=== PATIENT | female | born 1975 | race Caucasian/White ===

== ENCOUNTER 2016-06-17 10:17 | Emergency (ER) | payer OTHER ==
[~2016-06-17] VITALS: Ht 160 cm; Wt 70.4 kg
[~2016-06-17 10:17] MED LIST: ALPRAZOLAM0.25 M2 PO; BACTRIM,SEPT1 TABLET PO; CARBAMAZEPINE100 MG PO; ESCITALOPRAM OX20 MG PO; KEFLEX500 MG PO; LEVETIRACETAM750 MG PO; LEXAPRO20 MG PO; MYCOSTATIN 100,60 ML PO; Sodium Bicarbonate PO; VIMPAT50 MG PO; XANAX0.25 MG PO
[2016-06-17 11:08] LABS: EOSINOPHIL (%) 6.9 % (0-5); EOSINOPHIL COUNT 0.2 K/uL (0-0.3); HEMATOCRIT 42.1 % (36.0-46.0); INSTRUMENT ABS NEUTROPHIL CT 2.2 K/uL; LYMPHOCYTE COUNT 0.7 K/uL (1.0-2.8); MCH 30.2 PG (29.0-34.0); MCHC 34.4 G/DL (30.0-36.0); MCV 87.7 FL (83-99); MEAN PLAT.VOLUME 9.7 uM^3 (9.5-12.4); MONOCYTE (%) 9.4 % (3-12); MONOCYTE COUNT 0.3 K/uL (0-0.8); NEUTROPHIL (%) 63.1 % (45-76); NEUTROPHIL COUNT 2.2 K/uL (1.8-6.4); PLATELET COUNT 433 K/uL (156-360); RBC DIS.WIDTH-CV 11.3 % (11.8-14.6); RBC DIS.WIDTH-SD 36.5 % (39-53)
[2016-06-17 11:09] LABS: WHITE BLOOD COUNT 3.5 K/uL (4.1-10.2)
[2016-06-17 11:16] LABS: CHLORIDE 96 mEq/L (99-109); POTASSIUM 4.1 mEq/L (3.7-5.4); SODIUM 131 mEq/L (136-147)
[2016-06-17 11:18] LABS: GLUCOSE 84 mg/dL (70-99)
[2016-06-17 11:19] LABS: ANION GAP 8 MEQ/L (2-14)
[2016-06-17 11:20] LABS: TOTAL BILIRUBIN 0.3 mg/dL (0.0-1.0)
[2016-06-17 11:21] LABS: ALKALINE PHOSPHATASE 89 IU/L (3-129)
[2016-06-17 11:22] LABS: GFR ESTIMATE (CALCULATED) > 59 mL/min/
[2016-06-17 11:23] LABS: UREA NITROGEN (BUN) 6 mg/dL (9-23)
[2016-06-17 11:41] LABS: ADD MIUA? YES; BILIRUBIN NEGATIVE; BLOOD SMALL; COLOR YELLOW ((YELLOW)); GLUCOSE (STRIP) NEGATIVE; KETONES NEGATIVE; LEUKOCYTES NEGATIVE; NITRITE NEGATIVE; PROTEIN (STRIP) NEGATIVE; SPECIFIC GRAVITY 1.012 (1.000-1.030); UROBILINOGEN 0.2 MG/DL (0.2-1.0)
[2016-06-17 11:47] LABS: BACTERIA RARE /HPF; EPITHELIAL CELLS RARE /HPF; MUCUS TRACE /LPF; RED BLOOD CELLS 0-5 /HPF (0-5); UCUL ADDED? NO; WHITE BLOOD CELLS 0-5 /HPF (0-5)
[2016-06-17 15:18] VITALS: BP 117/71
== END 2016-06-17 15:18 | disposition home or self-care (01) ==
LOC: EME 10:17
PROVIDERS: Emergency Medicine
DX: G40.909 Epilepsy, unspecified, not intractable, without status epilepticus (principal); K21.9 Gastro-esophageal reflux disease without esophagitis; F79 Unspecified intellectual disabilities
CPT/HCPCS: 80053; 80156; 81003; 85025; 99281; 99285; J7030

== ENCOUNTER 2016-07-03 05:00 | Emergency (ER) | payer OTHER ==
[~2016-07-03] VITALS: Ht 160 cm; Wt 69.3 kg
[2016-07-03 06:07] LABS: CHLORIDE 97 mEq/L (99-109); POTASSIUM 3.8 mEq/L (3.7-5.4); SODIUM 132 mEq/L (136-147)
[2016-07-03 06:09] LABS: GLUCOSE 95 mg/dL (70-99)
[2016-07-03 06:10] LABS: ANION GAP 7 MEQ/L (2-14)
[2016-07-03 06:11] LABS: TOTAL BILIRUBIN 0.3 mg/dL (0.0-1.0)
[2016-07-03 06:13] LABS: ALKALINE PHOSPHATASE 67 IU/L (3-129); GFR ESTIMATE (CALCULATED) > 59 mL/min/
[2016-07-03 06:14] LABS: UREA NITROGEN (BUN) 6 mg/dL (9-23)
[2016-07-03 06:16] LABS: HEMATOCRIT 40.6 % (36.0-46.0); LIPASE 21 U/L (1.0-51.0); MCH 29.9 PG (29.0-34.0); MCHC 33.3 G/DL (30.0-36.0); MEAN PLAT.VOLUME 9.7 uM^3 (9.5-12.4); PLATELET COUNT 324 K/uL (156-360); RBC DIS.WIDTH-CV 11.6 % (11.8-14.6); RBC DIS.WIDTH-SD 38.2 % (39-53); RED BLOOD COUNT 4.51 M/uL (3.80-5.20); WHITE BLOOD COUNT 5.1 K/uL (4.1-10.2)
[2016-07-03 06:43] LABS: ADD MIUA? YES; BILIRUBIN NEGATIVE; BLOOD NEGATIVE; COLOR YELLOW ((YELLOW)); GLUCOSE (STRIP) NEGATIVE; KETONES NEGATIVE; LEUKOCYTES NEGATIVE; NITRITE NEGATIVE; PROTEIN (STRIP) NEGATIVE; UROBILINOGEN 0.2 MG/DL (0.2-1.0)
[2016-07-03] MEDS ORDERED: MOUTH SORE15 ML MM (08:03)
[2016-07-03 08:47] LABS: BACTERIA 1+ /HPF; EPITHELIAL CELLS 1+ /HPF; MUCUS 1+ /LPF; RED BLOOD CELLS NONE SEEN /HPF (0-5); UCUL ADDED? NO; WHITE BLOOD CELLS 0-5 /HPF (0-5)
[2016-07-03 09:26] VITALS: BP 130/85
== END 2016-07-03 09:27 | disposition home or self-care (01) ==
LOC: EME 05:00
PROVIDERS: Emergency Medicine
DX: E87.1 Hypo-osmolality and hyponatremia (principal); E86.0 Dehydration; K29.70 Gastritis, unspecified, without bleeding; F79 Unspecified intellectual disabilities; R20.8 Other disturbances of skin sensation; R42 Dizziness and giddiness
CPT/HCPCS: 80053; 81003; 83690; 85027; 99281; 99285; J7030

== ENCOUNTER 2016-08-02 23:16 | Inpatient (IN) | payer OTHER ==
[~2016-08-02] VITALS: Ht 162.6 cm; Wt 71.2 kg
[~2016-08-02 23:16] MED LIST changes: +MOUTH SORE15 ML MM
[2016-08-02 23:55] LABS: HEMATOCRIT 37.7 % (36.0-46.0); MCH 30.2 PG (29.0-34.0); MCHC 34.5 G/DL (30.0-36.0); MCV 87.5 FL (83-99); MEAN PLAT.VOLUME 9.4 uM^3 (9.5-12.4); PLATELET COUNT 361 K/uL (156-360); RBC DIS.WIDTH-CV 11.4 % (11.8-14.6); RBC DIS.WIDTH-SD 36.9 % (39-53); RED BLOOD COUNT 4.31 M/uL (3.80-5.20)
[2016-08-02 23:59] LABS: WHITE BLOOD COUNT 9.7 K/uL (4.1-10.2)
[2016-08-03] MEDS ORDERED: SODIUM CHLORIDE1 G1 PO (00:02)
[2016-08-03 00:03] LABS: CHLORIDE 98 mEq/L (99-109); POTASSIUM 3.6 mEq/L (3.7-5.4)
[2016-08-03] MEDS ORDERED: LORAZEPAM1 MG PO (00:03)
[2016-08-03 00:04] LABS: SODIUM 131 mEq/L (136-147)
[2016-08-03] MEDS ORDERED: EPITOL200 MG PO (00:05)
[2016-08-03 00:06] LABS: GLUCOSE 110 mg/dL (70-99)
[2016-08-03 00:07] LABS: ANION GAP 8 MEQ/L (2-14)
[2016-08-03 00:08] LABS: TOTAL BILIRUBIN 0.1 mg/dL (0.0-1.0)
[2016-08-03 00:09] LABS: ALKALINE PHOSPHATASE 75 IU/L (3-129); GFR ESTIMATE (CALCULATED) > 59 mL/min/
[2016-08-03 00:11] LABS: UREA NITROGEN (BUN) 7 mg/dL (9-23)
[2016-08-03 00:18] LABS: QUANTITATIVE HCG < 4.0 MIU/ML
[2016-08-03 00:38] LABS: ADD MIUA? YES; BILIRUBIN NEGATIVE; BLOOD SMALL; COLOR STRAW ((YELLOW)); GLUCOSE (STRIP) NEGATIVE; KETONES NEGATIVE; LEUKOCYTES NEGATIVE; NITRITE NEGATIVE; PROTEIN (STRIP) NEGATIVE; SPECIFIC GRAVITY 1.008 (1.000-1.030); UROBILINOGEN 0.2 MG/DL (0.2-1.0)
[2016-08-03 00:41] LABS: BACTERIA RARE /HPF; EPITHELIAL CELLS RARE /HPF; MUCUS NONE SEEN /LPF; RED BLOOD CELLS 0-5 /HPF (0-5); UCUL ADDED? NO; WHITE BLOOD CELLS 0-5 /HPF (0-5)
[2016-08-03] MEDS ORDERED: LEXAPRO10 MG PO (02:01)
[2016-08-03] MEDS ORDERED: ALLEGRA ALLERG180 MG PO (02:01)
[2016-08-03 04:10] LABS: SAMPLE HEMOLYSIS CHECK 0; SAMPLE ICTERIC CHECK 0; SAMPLE LIPEMIA CHECK 0
[2016-08-03 08:44] VITALS: BP 122/74
[2016-08-03 11:59] VITALS: BP 107/66
[2016-08-03 15:52] VITALS: BP 117/66
[2016-08-03 20:00] VITALS: BP 122/72
[2016-08-04] VITALS: BP 133/71
[2016-08-04 03:48] VITALS: BP 111/65
[2016-08-04 07:23] LABS: ALKALINE PHOSPHATASE 83 IU/L (3-129); ANION GAP 9 MEQ/L (2-14); CHLORIDE 100 MEQ/L (99-109); GFR ESTIMATE (CALCULATED) > 59 mL/min/; SAMPLE HEMOLYSIS CHECK 0; SAMPLE ICTERIC CHECK 0; SAMPLE LIPEMIA CHECK 0; SODIUM 133 MEQ/L (136-147); TOTAL BILIRUBIN 0.4 MG/DL (0.0-1.0); UREA NITROGEN (BUN) 5 mg/dL (9-23)
[2016-08-04 07:24] LABS: GLUCOSE 76 mg/dL (70-99)
[2016-08-04 07:25] LABS: HEMATOCRIT 39.1 % (36.0-46.0); MCH 30.2 PG (29.0-34.0); MCHC 33.5 G/DL (30.0-36.0); MCV 90.1 FL (83-99); MEAN PLAT.VOLUME 9.8 uM^3 (9.5-12.4); PLATELET COUNT 362 K/uL (156-360); RBC DIS.WIDTH-CV 11.9 % (11.8-14.6); RBC DIS.WIDTH-SD 39.2 % (39-53); RED BLOOD COUNT 4.34 M/uL (3.80-5.20)
[2016-08-04 07:27] VITALS: BP 127/75
[2016-08-04 07:37] LABS: WHITE BLOOD COUNT 5.6 K/uL (4.1-10.2)
[2016-08-04 11:00] VITALS: BP 123/87
[2016-08-04 15:19] VITALS: BP 118/78
[2016-08-04 19:36] VITALS: BP 136/75
[2016-08-05] VITALS: BP 132/81
[2016-08-05 04:00] VITALS: BP 146/83
[2016-08-05 07:51] VITALS: BP 109/73
[2016-08-05 08:55] LABS: ANION GAP 7 MEQ/L (2-14); CHLORIDE 96 MEQ/L (99-109); GFR ESTIMATE (CALCULATED) > 59 mL/min/; POTASSIUM 3.8 MEQ/L (3.7-5.4); SAMPLE HEMOLYSIS CHECK 0; SAMPLE ICTERIC CHECK 0; SAMPLE LIPEMIA CHECK 0; SODIUM 129 MEQ/L (136-147); UREA NITROGEN (BUN) 4 mg/dL (9-23)
[2016-08-05 08:57] LABS: GLUCOSE 98 mg/dL (70-99)
[2016-08-05 11:09] VITALS: BP 138/80
[2016-08-05 15:09] VITALS: BP 103/62
[2016-08-05 20:00] VITALS: BP 112/74
[2016-08-05 20:14] LABS: INTERNAL CONTROL VALID? YES
[2016-08-06] VITALS: BP 109/72
[2016-08-06 04:00] VITALS: BP 119/70
[2016-08-06 07:08] LABS: HEMATOCRIT 36.7 % (36.0-46.0); MCH 30.3 PG (29.0-34.0); MCHC 34.1 G/DL (30.0-36.0); MCV 88.9 FL (83-99); MEAN PLAT.VOLUME 9.8 uM^3 (9.5-12.4); PLATELET COUNT 349 K/uL (156-360); RBC DIS.WIDTH-CV 11.7 % (11.8-14.6); RBC DIS.WIDTH-SD 37.4 % (39-53); RED BLOOD COUNT 4.13 M/uL (3.80-5.20); WHITE BLOOD COUNT 5.8 K/uL (4.1-10.2)
[2016-08-06 07:30] LABS: ANION GAP 8 MEQ/L (2-14); CHLORIDE 97 MEQ/L (99-109); GFR ESTIMATE (CALCULATED) > 59 mL/min/; GLUCOSE 92 mg/dL (70-99); POTASSIUM 4.3 MEQ/L (3.7-5.4); SAMPLE HEMOLYSIS CHECK 0; SAMPLE ICTERIC CHECK 0; SAMPLE LIPEMIA CHECK 0; SODIUM 130 MEQ/L (136-147); UREA NITROGEN (BUN) 7 mg/dL (9-23)
[2016-08-06 08:03] VITALS: BP 111/63
[2016-08-06 10:58] VITALS: BP 111/71
[2016-08-06] MEDS ORDERED: PROTONIX40 MG PO (11:25)
[2016-08-06] MEDS ORDERED: LIDODERM 5% P1 PATCH TD (13:27)
== END 2016-08-06 13:45 | disposition home health service (06) | DRG 101 ==
LOC: EME 23:16 → 5SOUTH 08-03 05:35 → EDOF 08-03 05:35 → 5SOUTH 08-03 05:35
PROVIDERS: Emergency Medicine; Hospitalist; Nurse Practitioner Adult Health; Physician Assistant Medical
DX: G40.409 Other generalized epilepsy and epileptic syndromes, not intractable, without status epilepticus (principal); E87.1 Hypo-osmolality and hyponatremia; R10.84 Generalized abdominal pain; Z91.81 History of falling; K20.0 Eosinophilic esophagitis; N83.202 Unspecified ovarian cyst, left side; Z87.440 Personal history of urinary (tract) infections; F70 Mild intellectual disabilities; K29.70 Gastritis, unspecified, without bleeding; F41.9 Anxiety disorder, unspecified; K92.1 Melena
CPT/HCPCS: 74177; 80048; 80053; 80164; 81003; 82272; 83605; 84702; 85027; 86900; 86901; 93005; 99281; 99284; C9113; J2060; J7030

== ENCOUNTER → 2016-08-19 | Outpatient (CLI) | payer OTHER ==
[~2016-08-19] MED LIST changes: +ALLEGRA ALLERG180 MG PO; +EPITOL200 MG PO; +LEXAPRO10 MG PO; +LIDODERM 5% P1 PATCH TD; +LORAZEPAM1 MG PO; +PROTONIX40 MG PO; +SODIUM CHLORIDE1 G1 PO
== END | disposition home or self-care (01) ==
DX: R13.10 Dysphagia, unspecified (principal); R56.9 Unspecified convulsions
CPT/HCPCS: 92611 GN

== ENCOUNTER 2017-02-14 09:50 | Emergency (ER) | payer OTHER ==
[~2017-02-14] VITALS: Ht 160 cm; Wt 83.1 kg
[2017-02-14 10:43] LABS: HEMATOCRIT 42.5 % (36.0-46.0); MCH 30.5 PG (29.0-34.0); MCHC 34.4 G/DL (30.0-36.0); MCV 88.7 FL (83-99); MEAN PLAT.VOLUME 9.2 uM^3 (9.5-12.4); PLATELET COUNT 427 K/uL (156-360); RBC DIS.WIDTH-CV 11.9 % (11.8-14.6); RBC DIS.WIDTH-SD 38.4 % (39-53); RED BLOOD COUNT 4.79 M/uL (3.80-5.20); WHITE BLOOD COUNT 13.5 K/uL (4.1-10.2)
[2017-02-14 10:53] LABS: CHLORIDE 103 mEq/L (99-109); POTASSIUM 3.8 mEq/L (3.7-5.4); SODIUM 134 mEq/L (136-147)
[2017-02-14 10:55] LABS: GLUCOSE 114 mg/dL (70-99)
[2017-02-14 10:56] LABS: ANION GAP 9 MEQ/L (2-14)
[2017-02-14 10:57] LABS: TOTAL BILIRUBIN 0.5 mg/dL (0.0-1.0)
[2017-02-14 10:58] LABS: ALKALINE PHOSPHATASE 83 IU/L (3-129)
[2017-02-14 10:59] LABS: GFR ESTIMATE (CALCULATED) > 59 mL/min/
[2017-02-14 11:00] LABS: UREA NITROGEN (BUN) 7 mg/dL (9-23)
[2017-02-14 11:02] LABS: LIPASE 39 U/L (1.0-51.0)
[2017-02-14 11:10] LABS: QUANTITATIVE HCG < 4.0 MIU/ML
[2017-02-14 12:04] LABS: ADD MIUA? YES; BILIRUBIN NEGATIVE; BLOOD NEGATIVE; COLOR YELLOW ((YELLOW)); GLUCOSE (STRIP) NEGATIVE; KETONES NEGATIVE; LEUKOCYTES LARGE; NITRITE NEGATIVE; PROTEIN (STRIP) NEGATIVE; SPECIFIC GRAVITY 1.012 (1.000-1.030); UROBILINOGEN 0.2 MG/DL (0.2-1.0)
[2017-02-14 12:27] LABS: BACTERIA 2+ /HPF; EPITHELIAL CELLS RARE /HPF; MUCUS NONE SEEN /LPF; RED BLOOD CELLS 0-5 /HPF (0-5); UCUL ADDED? YES; UNCLASSIFIED CRYSTALS 3+ /HPF; WHITE BLOOD CELLS 15-20 /HPF (0-5)
[2017-02-14] MEDS ORDERED: KEFLEX500 MG PO (16:53)
[2017-02-14] MEDS ORDERED: NORCO 5/3251 TABLET PO (18:16)
[2017-02-14] MEDS ORDERED: DIFLUCAN150 MG PO (18:16)
[2017-02-14 18:38] VITALS: BP 135/94
== END 2017-02-14 18:44 | disposition home or self-care (01) ==
LOC: EME 09:50
DX: N39.0 Urinary tract infection, site not specified (principal); E87.1 Hypo-osmolality and hyponatremia; Z87.440 Personal history of urinary (tract) infections; R56.9 Unspecified convulsions; F79 Unspecified intellectual disabilities; F41.9 Anxiety disorder, unspecified
CPT/HCPCS: 74177; 80053; 81003; 83690; 84702; 85027; 87077; 87086; 87186; 99281; 99285; J0696; J3010; J7030; J7050

== ENCOUNTER 2017-03-03 12:26 | Observation (INO) | payer OTHER ==
[~2017-03-03] VITALS: Ht 160 cm; Wt 81.8 kg
[~2017-03-03 12:26] MED LIST changes: +DIFLUCAN150 MG PO; +KEPPRA1000 MG PO; +NORCO 5/3251 TABLET PO
[2017-03-03 13:26] LABS: HEMATOCRIT 46.9 % (36.0-46.0); MCH 29.9 PG (29.0-34.0); MCV 90.4 FL (83-99); MEAN PLAT.VOLUME 9.9 uM^3 (9.5-12.4); PLATELET COUNT 409 K/uL (156-360); RBC DIS.WIDTH-CV 11.7 % (11.8-14.6); RBC DIS.WIDTH-SD 38.7 % (39-53); RED BLOOD COUNT 5.19 M/uL (3.80-5.20); WHITE BLOOD COUNT 7.8 K/uL (4.1-10.2)
[2017-03-03 13:56] LABS: ANION GAP 8 MEQ/L (2-14); CHLORIDE 101 MEQ/L (99-109); GFR ESTIMATE (CALCULATED) > 59 mL/min/; GLUCOSE 86 mg/dL (70-99); POTASSIUM 3.8 MEQ/L (3.7-5.4); SAMPLE HEMOLYSIS CHECK 0; SAMPLE ICTERIC CHECK 0; SAMPLE LIPEMIA CHECK 0; SODIUM 137 MEQ/L (136-147); UREA NITROGEN (BUN) 10 mg/dL (9-23)
[2017-03-03 16:33] LABS: ADD MIUA? NO; BILIRUBIN NEGATIVE; BLOOD NEGATIVE; COLOR YELLOW ((YELLOW)); GLUCOSE (STRIP) NEGATIVE; KETONES NEGATIVE; LEUKOCYTES NEGATIVE; NITRITE NEGATIVE; PROTEIN (STRIP) NEGATIVE; SPECIFIC GRAVITY 1.012 (1.000-1.030); UCUL ADDED? NO; UROBILINOGEN 0.2 MG/DL (0.2-1.0)
[2017-03-03] MEDS ORDERED: PROTONIX40 MG PO (17:26)
[2017-03-03] MEDS ORDERED: VITAMIN B-650 MG PO (17:27)
[2017-03-03] MEDS ORDERED: MAG-OXIDE400 MG PO (17:28)
[2017-03-03] MEDS ORDERED: ALPRAZOLAM0.25 M2 PO (17:28)
[2017-03-03] MEDS ORDERED: LIDOCAINE20 MG/1 M5 PO (17:30)
[2017-03-03] MEDS ORDERED: VENLAFAXINE H37.5 M3 PO (17:32)
[2017-03-03] MEDS ORDERED: CETIRIZINE HCL10 M2 PO (17:33)
[2017-03-03 17:43] LABS: HDL CHOLESTEROL 52 MG/DL (Desirable>=50); LDL CHOLESTEROL 104 mg/dL (Desirable<100); NON-HDL CHOLESTEROL 133 mg/dL (Desirable<160); TOTAL CHOLESTEROL 185 mg/dL (Desirable<200); TRIGLYCERIDES 143 MG/DL (Normal: <150)
[2017-03-03 18:37] VITALS: BP 118/70
[2017-03-03 19:15] LABS: Estimated Average Glucose 105 mg/dL (70-123); HEMOGLOBIN A1c (GLYCOHEMOGLOB) 5.3 % HGB (Below 5.7)
[2017-03-03 23:33] VITALS: BP 123/83
[2017-03-04 03:36] VITALS: BP 129/94
[2017-03-04 06:57] VITALS: BP 93/55
[2017-03-04 10:41] VITALS: BP 116/71
[2017-03-04] MEDS ORDERED: EFFEXOR50 MG PO ×2 (12:03→13:26)
[2017-03-04] MEDS ORDERED: EFFEXOR75 MG PO (13:24)
[2017-03-04] MEDS ORDERED: EFFEXOR XR75 MG PO (13:39)
== END 2017-03-04 14:02 | disposition home or self-care (01) ==
LOC: EME 12:26 → EDOF 16:45 → 5WEST 16:45 → ENRESERV 17:01 → 5WEST 18:13
PROVIDERS: Hospitalist
DX: F41.9 Anxiety disorder, unspecified (principal); G40.909 Epilepsy, unspecified, not intractable, without status epilepticus; F79 Unspecified intellectual disabilities; Z82.3 Family history of stroke; Z88.5 Allergy status to narcotic agent
CPT/HCPCS: 70450; 71020; 80048; 80061; 81003; 83036; 85027; 93005; 95819; 99281; 99285; G0378; J1650

== ENCOUNTER 2017-12-02 12:44 | Emergency (ER) | payer OTHER ==
[~2017-12-02] VITALS: Ht 162.6 cm; Wt 84.0 kg
[~2017-12-02 12:44] MED LIST changes: +CETIRIZINE HCL10 M2 PO; +EFFEXOR XR75 MG PO; +EFFEXOR50 MG PO; +EFFEXOR75 MG PO; +LIDOCAINE20 MG/1 M5 PO; +MAG-OXIDE400 MG PO; +VENLAFAXINE H37.5 M3 PO; +VITAMIN B-650 MG PO
[2017-12-02 14:12] LABS: APPEARANCE SL.HAZY ((CLEAR)); BILIRUBIN NEGATIVE; BLOOD NEGATIVE; COLOR YELLOW ((YELLOW)); GLUCOSE (STRIP) NEGATIVE; KETONES NEGATIVE; LEUKOCYTES NEGATIVE; NITRITE NEGATIVE; PROTEIN (STRIP) 30; SPECIFIC GRAVITY 1.021 (1.000-1.030); UROBILINOGEN 0.2 MG/DL (0.2-1.0)
[2017-12-02 14:22] LABS: BACTERIA 1+ /HPF; EPITHELIAL CELLS 1+ /HPF; MUCUS TRACE /LPF; RED BLOOD CELLS 0-5 /HPF (0-5); UCUL ADDED? NO; WHITE BLOOD CELLS 0-5 /HPF (0-5)
[2017-12-02 14:26] LABS: BASOPHIL (%) 0.3 % (0-1); EOSINOPHIL (%) 0.3 % (0-5); HEMATOCRIT 47.5 % (36.0-46.0); HEMOGLOBIN 15.9 G/DL (11.9-15.5); IMMATURE GRANULOCYTE (%) 0.4 % (0.0-0.7); LYMPHOCYTE (%) 13.2 % (15-42); LYMPHOCYTE COUNT 1.5 K/uL (1.0-2.8); MCH 28.5 PG (29.0-34.0); MCHC 33.5 G/DL (30.0-36.0); MCV 85.1 FL (83-99); MONOCYTE (%) 7.7 % (3-12); MONOCYTE COUNT 0.9 K/uL (0-0.8); NEUTROPHIL (%) 78.1 % (45-76); NEUTROPHIL COUNT 8.9 K/uL (1.8-6.4); PLATELET COUNT 330 K/uL (156-360); RBC DIS.WIDTH-CV 12.9 % (11.8-14.6); RBC DIS.WIDTH-SD 40.3 % (39-53); RED BLOOD COUNT 5.58 M/uL (3.80-5.20); WHITE BLOOD COUNT 11.4 K/uL (4.1-10.2)
[2017-12-02 14:34] LABS: ALBUMIN 4.6 g/dL (3.2-4.8); CHLORIDE 104 mEq/L (99-109); POTASSIUM 4.5 mEq/L (3.7-5.4); SODIUM 137 mEq/L (136-147)
[2017-12-02 14:36] LABS: GLUCOSE 103 mg/dL (70-99)
[2017-12-02 14:37] LABS: TOTAL PROTEIN 8.3 g/dL (6.4-8.3)
[2017-12-02 14:38] LABS: TOTAL BILIRUBIN 0.9 mg/dL (0.0-1.0)
[2017-12-02 14:40] LABS: ALKALINE PHOSPHATASE 74 IU/L (3-129); CREATININE 0.8 mg/dL (0.6-1.3); GFR ESTIMATE (CALCULATED) > 59 mL/min/
[2017-12-02 14:41] LABS: UREA NITROGEN (BUN) 11 mg/dL (9-23)
[2017-12-02 14:42] LABS: AST (GOT) 13 IU/L (2-34); DIRECT BILIRUBIN 0.3 mg/dL (0.0-0.3)
[2017-12-02 14:43] LABS: ALT (GPT) 26 IU/L (3-49)
[2017-12-02 14:44] LABS: LIPASE 27 U/L (1.0-51.0)
[2017-12-02 14:49] LABS: QUANTITATIVE HCG < 4.0 MIU/ML
[2017-12-02] MEDS ORDERED: BENTYL10 MG PO (18:43)
[2017-12-02 20:11] VITALS: BP 120/84
== END 2017-12-02 20:11 | disposition home or self-care (01) ==
LOC: EME 12:44
PROVIDERS: Emergency Medicine
DX: R10.9 Unspecified abdominal pain (principal); J02.9 Acute pharyngitis, unspecified; R50.9 Fever, unspecified
CPT/HCPCS: 71045; 74177; 80048; 80076; 81003; 83605; 83690; 84702; 85025; 87040; 99281; 99284; J0696; J1885; J7040